=== PATIENT | female | born 1935 | race Caucasian/White ===

== ENCOUNTER 2018-12-24 13:33 | Inpatient (IN) ==
[2018-12-24] MEDS ORDERED: NS 1,000 ML IV ONE (14:16)
--- NOTE | 2018-12-24 14:50 | Diag Imaging Result Doc PS360 ---
EXAM: CT HEAD W/O CONTRAST HISTORY: altered mental status TECHNIQUE: Images were obtained from the skull base to vertex without IV contrast as per standard protocol. COMPARISON: None. FINDINGS: There is diffuse cerebral atrophy. No extra-axial collections. Deep white matter hypodensity is noted most consistent with microvascular disease. Punctate hyperdensity left basal ganglia likely represents calcification. No definite acute hemorrhage. No CT evidence for acute infarct. No midline shift or mass effect. Paranasal sinuses, mastoid air cells, and middle ear cavities are clear. Calvarium is intact. IMPRESSION: Atrophy and microvascular disease. No acute intracranial abnormality. This exam was performed using automated exposure control, adjustment of mA or kV according to patient size, and/or use of iterative reconstruction technique. Electronically signed by Jaimee Brennan 12/24/2018 2:47 PM
[2018-12-24 15:13] LABS: BASO# 0.01 X1000 (0.0-0.2); BASO% 0.3 % (0.0-0.8); EOS# 0.02 X1000 (0.0-0.7); EOS% 0.6 % (0.0-10.0); HEMATOCRIT 35.3 % (37.0-47.0); HEMOGLOBIN 11.3 g/dL (12.0-16.0); LYMPH# 1.43 X1000 (1.2-3.4); LYMPH% 39.5 % (20.5-51.1); MCH 30.1 PG (27-31); MCV 93.9 FL (81-99); MONO# 0.42 X1000 (0.11-0.59); MONO% 11.6 % (1.7-9.3); MPV 10.9 FL (7.4-10.4); NEUT# 1.74 X1000 (1.4-6.5); PLT 183 X1000 (130-400); RBC 3.76 XMIL (4.2-5.4); RDW 13.8 % (11.5-14.5); WBC 3.62 X1000 (4.8-10.8)
[2018-12-24 15:47] LABS: ALBUMIN 4.6 g/dL (3.5-5.0); CALCIUM 9.2 mg/dL (8.8-10.2); CREATININE 0.9 mg/dL (0.5-0.9); POTASSIUM 4.1 mmol/L (3.5-5.1); TOTAL BILIRUBIN 0.5 mg/dL (0.20-1.00); TOTAL PROTEIN 8.3 g/dL (6.3-8.3)
--- NOTE | 2018-12-24 16:23 | Diag Imaging Result Doc PS360 ---
EXAM: CHEST-PORTABLE HISTORY: altered mental status TECHNIQUE: Single view of the chest was performed portably. COMPARISON: None. FINDINGS: The heart size is within normal limits. The pulmonary vasculature is not congested. There is pulmonary vascular congestion and prominent interstitial markings bilaterally. There are small bilateral effusions and more focal opacity in the left lung base. Poor inspiratory result. Deformity proximal right humerus compatible with old fracture. Small calcified granuloma right midlung. IMPRESSION: Decreased inspiration. Bilateral interstitial infiltrates. Small bilateral effusions. Nonspecific airspace disease left lower lobe . Electronically signed by Jaimee Brennan 12/24/2018 4:21 PM
[2018-12-24 16:36] LABS: BILIRUBIN URINE NEGATIVE (NEGATIVE); BLOOD URINE NEGATIVE (NEGATIVE); CLARITY CLEAR (CLEAR); COLOR YELLOW; GLUCOSE URINE NEGATIVE (NEGATIVE); KETONE URINE TRACE mg/dL (NEGATIVE); LEUKOCYTES URINE NEGATIVE (NEGATIVE); NITRITE URINE NEGATIVE (NEGATIVE); PH URINE 6.5; PROTEIN URINE NEGATIVE (NEGATIVE); UROBILINOGEN URINE NORMAL
[2018-12-24 16:41] LABS: URINE BACTERIA NEGATIVE /HFP; URINE EPITHELIAL CELLS <10 /HPF (<10); URINE RBC <10 /HPF (<10); URINE SOURCE CLEAN CATCH; URINE WBC <10 /HPF (<10)
[2018-12-24] MEDS ORDERED: TYLENOL PO PRN (16:58)
[2018-12-24] MEDS ORDERED: ZOFRAN IV PRN (16:58)
[2018-12-24] MEDS ORDERED: NS 1,000 ML IV PRN (16:58)
--- NOTE | 2018-12-24 17:28 | PROVIDER DOCUMENTATION ---
This chart was entered by Aman Corea Scribe, acting as scribe for Destinee Palomo MD. HPI-Neurological Disorder - General Chief Complaint: Altered Mental Status Stated Complaint: CONFUSED Time Seen by Provider: 12/24/18 14:03 Source: patient Allergies/Adverse Reactions: Patient Allergies Allergy/AdvReac Type Severity Reaction Status Date / Time No Known Allergies Allergy Verified 12/24/18 13:47 Home Medications: Home Medication List Medication Instructions Recorded Confirmed Last Taken Type NK [No Home Medications] 12/24/18 12/24/18 Unknown History - History of Present Illness-Neuro Nature of Presenting Problem: Patient is a 83 year old female who presents with confusion. DHR caregiver states patient lives alone and her personal lines insurance agent (niece) has not been taking care of her. DHR caregiver states patient did not have food in her house and does not know the last time the patient had her medications. DHR caregiver states confusion has worsened within the last week. History of dementia. Severity: reports: mild Onset/Duration: reports: 1 week ago Timing: reports: still present, getting worse Context: reports: other (AMS) Character of Altered Mental Status: reports: confused Associated Symptoms: reports: denies symptoms Similar Symptoms Previously?: Yes Recently seen or treated by another doctor?: Yes Review of Systems - Adult - REVIEW OF SYSTEMS - ADULT ROS:: ROS per DHR caregiver Constitutional: reports: no symptoms reported Eyes: reports: no symptoms reported Ears, Nose, Mouth & Throat: reports: no symptoms reported Cardiovascular: reports: no symptoms reported Respiratory: reports: no symptoms reported Gastrointestinal: reports: no symptoms reported Genitourinary: reports: no symptoms reported Musculoskeletal: reports: no symptoms reported Integumentary: reports: no symptoms reported Neurological: reports: see HPI, other (AMS - confusion). denies: dizziness/vertigo, headache/migraines, slurred speech, syncope Psychiatric: reports: no symptoms reported Endocrine: reports: no symptoms reported Hematologic/Lymphatic: reports: no symptoms reported Allergic/Immunologic: reports: no symptoms reported All Other Systems: Reviewed and Negative Past History - Adult - PAST MEDICAL HISTORY-ADULT Review of Records: reports: Old Records Reviewed, Nursing Assessment Review, Medications Reviewed, Social history reviewed & non-contributory. Major Childhood Illnesses: reports: denies history Cardiovascular: reports: denies history Respiratory: reports: denies history Gastrointestinal: reports: denies history Obstetrical/Gynecological: reports: denies history Genitourinary: reports: denies history Musculoskeletal: reports: denies history Neurological: reports: dementia Psychiatric: reports: denies history Endocrine/Immune: reports: denies history Other Conditions: reports: denies history - PRIOR SURGERIES/PROCEDURES Surgical/Procedure History: reports: reviewed, not pertinent - IMMUNIZATION STATUS Childhood Immunizations: See Nurse Assessment Flu Vaccine: See Nurse Assessment - FAMILY HISTORY Family History: reviewed, not pertinent - SOCIAL HISTORY Smoking: denies Substance Use: denies Physical Exam- Neurological - Physical Exam-Neuro Initial Vital Signs Reviewed: Yes General Appearance: alert, no apparent distress. negative: lethargic Eye Exam: bilateral eye: normal inspection HENMT: normocephalic/atraumatic, moist mucous membranes. negative: angioedema Head Injury: no evidence of injury. negative: active bleeding, lacerations, swelling Respiratory: chest non-tender, lungs clear, normal breath sounds. negative: rales, wheezing Cardiovascular: normal peripheral pulses, regular rate, rhythm. negative: tachycardia, systolic murmur Abdominal Exam: normal bowel sounds, non tender, soft. negative: rigid Extremity: non-tender, normal inspection. negative: deformity telemarketer supervisor Exam: normal hearing, normal speech, PERRL. negative: facial droop Integumentary: normal color, normal turgor, warm/dry. negative: diaphoresis, ecchymosis, rash Psych/Mental Status: normal mood/affect, other (oriented to person. disoriented to place and time.). negative: anxious, paranoid Progress - PLAN OF CARE/RESULTS Progress/Plan/Lab Results: Vital Signs - 8 hr 12/24/18 13:44 12/24/18 15:04 12/24/18 16:34 Temperature 98 F 98.2 F Pulse Rate 73 76 86 Respiratory Rate 18 18 20 Blood Pressure 139/73 167/53 143/110 O2 Sat by Pulse Oximetry 97 98 96 Laboratory Results - last 24 hr 12/24/18 12/24/18 12/24/18 14:45 14:45 14:45 WBC 3.62 L RBC 3.76 L Hgb 11.3 L Hct 35.3 L MCV 93.9 MCH 30.1 MCHC 32.0 L RDW Std Deviation 13.8 Plt Count 183 MPV 10.9 H Immature Gran % (Auto) 0.0 Neut % (Auto) 48.0 Lymph % (Auto) 39.5 [place] % (Auto) 11.6 H Eos % (Auto) 0.6 Baso % (Auto) 0.3 Immature Gran # (Auto) 0.00 Neut # (Auto) 1.74 Lymph # (Auto) 1.43 [place] # (Auto) 0.42 Eos # (Auto) 0.02 Baso # (Auto) 0.01 Sodium 137 Potassium 4.1 Chloride 102 Carbon Dioxide 23 L Anion Gap 12 BUN 21 Creatinine 0.9 Estimated GFR/1.73 m2 60 BUN/Creatinine Ratio 23 Glucose 97 Calculated Osmolality 277 Calcium 9.2 Total Bilirubin 0.50 AST 20 ALT 13 Alkaline Phosphatase 76 Total Protein 8.3 Albumin 4.6 Globulin 4.0 Albumin/Globulin Ratio 1.0 TSH 1.28 Urine Source Urine Color Urine Clarity Urine pH Ur Specific [place] Urine Protein Urine Ketones Urine Blood Urine Nitrite Urine Bilirubin Urine Urobilinogen Urine Microscopic RBC Urine WBC Urine Microscopic WBC Ur Epithelial Cells Urine Bacteria Urine Glucose 12/24/18 15:49 WBC RBC Hgb Hct MCV MCH MCHC RDW Std Deviation Plt Count MPV Immature Gran % (Auto) Neut % (Auto) Lymph % (Auto) [place] % (Auto) Eos % (Auto) Baso % (Auto) Immature Gran # (Auto) Neut # (Auto) Lymph # (Auto) [place] # (Auto) Eos # (Auto) Baso # (Auto) Sodium Potassium Chloride Carbon Dioxide Anion Gap BUN Creatinine Estimated GFR/1.73 m2 BUN/Creatinine Ratio Glucose Calculated Osmolality Calcium Total Bilirubin AST ALT Alkaline Phosphatase Total Protein Albumin Globulin Albumin/Globulin Ratio TSH Urine Source CLEAN CATCH Urine Color YELLOW Urine Clarity CLEAR Urine pH 6.5 Ur Specific [place] 1.010 Urine Protein NEGATIVE Urine Ketones TRACE Urine Blood NEGATIVE Urine Nitrite NEGATIVE Urine Bilirubin NEGATIVE Urine Urobilinogen NORMAL Urine Microscopic RBC <10 Urine WBC NEGATIVE Urine Microscopic WBC <10 Ur Epithelial Cells <10 Urine Bacteria NEGATIVE Urine Glucose NEGATIVE Orders Category Date Time Status Admit - [facility] Routine AdmDCTranf 12/24/18 16:58 Active Activity - Up with Assistance ORDERED Care 12/24/18 17:40 Active Apply Mechanical Device [QM] ORDERED Care 12/24/18 17:40 Active Intake and Output-Strict ORDERED Care 12/24/18 17:40 Active Saline Loc NOW Care 12/24/18 14:14 Active Update & Confirm Home Medicati ROUTINE Care 12/24/18 16:58 Active Vital Signs Order Q 8-HR ASSESS Care 12/24/18 17:40 Active Z-Document. for Tele Applied ORDERED Care 12/24/18 17:40 Active Social Service Consult Routine Cons 12/24/18 17:40 Active Regular Diet Diet 12/24/18 16:58 Active CHEST-PORTABLE [RAD] Stat Exams 12/24/18 15:[address] HEAD W/O CONTRAST [CT] Stat Exams 12/24/18 14:14 Completed CBC WITH DIFF [HEME] Routine Lab 12/25/18 06:00 Ordered CBC WITH DIFF [HEME] Stat Lab 12/24/18 14:45 Completed COMPREHENSIVE METABOLIC PANEL [CHEM] Routine Lab 12/25/18 06:00 Ordered COMPREHENSIVE METABOLIC PANEL [CHEM] Stat Lab 12/24/18 14:45 Completed MAGNESIUM [CHEM] Routine Lab 12/25/18 06:00 Ordered TSH Stat Lab 12/24/18 14:[address] W/POSS RFLX CULT [URINALYSIS] Stat Lab 12/24/18 15:49 Completed 0.9% Sodium Chloride Inj [Ns] 1,000 ml Med 12/24/18 16:58 Active IV 75 mls/hr 0.9% Sodium Chloride Inj [Ns] 1,000 ml Med 12/24/18 14:16 Discontinued IV 999 mls/hr Acetaminophen [Tylenol] Med 12/24/18 16:58 Active 650 mg PO PRN PRN Ondansetron [Zofran] Med 12/24/18 16:58 Active 4 mg IV Q4H PRN PRN Telemetry [OM.EQ] Routine Oth 12/24/18 17:40 Active Transfer/Admit Order [TRANSFER] Routine Transfer 12/24/18 16:55 Completed Result Diagrams: 12/24/18 14:45 12/24/18 14:45 - EKG 1 Time of EKG reading by physician:: 13:56 EKG Read and Signed by:: Destinee Palomo EKG Interpretation (*Must complete 3 of following elements*): Abnormal Rate: 75 Rhythm: sinus rhythm with marked sinus arrhythmia [place]: normal [place] Interval: normal Comments: otherwise normal ECG - XRAY 1 XRAY Study: Chest Impression: See EMR Report (EXAM: CHEST-PORTABLE HISTORY: altered mental status TECHNIQUE: Single view of the chest was performed portably. COMPARISON: None. FINDINGS: The heart size is within normal limits. The pulmonary vasculature is not congested. There is pulmonary vascular congestion and prominent interstitial markings bilaterally. There are small bilateral effusions and more focal opacity in the left lung base. Poor inspiratory result. Deformity proximal right humerus compatible with old fracture. Small calcified granuloma right midlung. IMPRESSION: Decreased inspiration. Bilateral interstitial infiltrates. Small bilateral effusions. Nonspecific airspace disease left lower lobe . Electronically signed by Jaimee Brennan 12/24/2018 4:21 PM 12/24/18 1621 Interpreting Physician: Jaimee Brennan MD Dictated Date/Time: 12/24/18 1617 cc: Destinee Palomo MD; None,PCP) - CT/MRI 1 CT Study: Head Impression: See EMR Report (Signed EXAM: CT HEAD W/O CONTRAST HISTORY: altered mental status TECHNIQUE: Images were obtained from the skull base to vertex without IV contrast as per standard protocol. COMPARISON: None. FINDINGS: There is diffuse cerebral atrophy. No extra-axial collections. Deep white matter hypodensity is noted most consistent with microvascular disease. Punctate hyperdensity left basal ganglia likely represents calcification. No definite acute hemorrhage. No CT evidence for acute infarct. No midline shift or mass effect. Paranasal sinuses, mastoid air cells, and middle ear cavities are clear. Calvarium is intact. IMPRESSION: Atrophy and microvascular disease. No acute intracranial abnormality. This exam was performed using automated exposure control, adjustment of mA or kV according to patient size, and/or use of iterative reconstruction technique. Electronically signed by Jaimee Brennan 12/24/2018 2:47 PM 12/24/18 1447 Interpreting Physician: Jaimee Brennan MD Dictated Date/Time: 12/24/18 1441 cc: Destinee Palomo MD; None,PCP) - CONSULTS/PCP/HOSPITALIST Notification #1 *Consult/PCP/Hospitalist*: Dr. Duarte Time Discussed: 16:47 Reason/Comments: Dr. Palomo consulted with Dr. Duarte about patient. Consult Disposition: Will see in ED Departure - Departure Date of Disposition Decision: 12/24/18 Time of Disposition Decision: 18:00 DIAGNOSIS: Dementia, Altered mental status Disposition: ADMITTED INPATIENT 09 Certified Medical Emergency: Emergent Condition: Good - Critical Care Note This patient required my direct & personal management of CC.: No Attestation - Physician/ SAEED Attestation Patient care was provided by Advanced Practice Provider:: No The physician spent face to face time with patient:: Yes Advanced Practice Provider documentation review:: Supervising physician onsite and consulted in the evaluation and care of this patient. The physician did have a face to face encounter with the patient. This chart was documented by the indicated scribe, (Amna Corea Scribe) and accurately reflects the services I performed and decisions made by , Destinee Palomo MD, as attested by the provider's signature.
[2018-12-24] MEDS ORDERED: STERILE WATER INJ. INJ PRN (18:44)
[2018-12-24] MEDS ORDERED: GEODON IM PRN (18:44)
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
[2018-12-25] MEDS ORDERED: TYLENOL PO PRN (06:30)
[2018-12-25 06:49] LABS: EOS# 0.03 X1000 (0.0-0.7); EOS% 0.9 % (0.0-10.0); HEMATOCRIT 32.7 % (37.0-47.0); HEMOGLOBIN 10.4 g/dL (12.0-16.0); IMM GRAN# 0.01 X1000 (0.0-0.04); IMM GRAN% 0.3 % (0.0-0.5); LYMPH# 1.26 X1000 (1.2-3.4); LYMPH% 37.6 % (20.5-51.1); MCH 29.8 PG (27-31); MCHC 31.8 g/dL (33-37); MCV 93.7 FL (81-99); MONO# 0.43 X1000 (0.11-0.59); MONO% 12.8 % (1.7-9.3); MPV 11.6 FL (7.4-10.4); NEUT# 1.62 X1000 (1.4-6.5); NEUT% 48.4 % (42.2-75.2); PLT 150 X1000 (130-400); RBC 3.49 XMIL (4.2-5.4); RDW 13.7 % (11.5-14.5); WBC 3.35 X1000 (4.8-10.8)
[2018-12-25 08:03] LABS: ALBUMIN 4.4 g/dL (3.5-5.0); CREATININE 0.9 mg/dL (0.5-0.9); TOTAL BILIRUBIN 0.5 mg/dL (0.20-1.00); TOTAL PROTEIN 7.9 g/dL (6.3-8.3)
[2018-12-25] MEDS ORDERED: GEODON IM ONE (09:42)
[2018-12-25] MEDS ORDERED: STERILE WATER INJ. INJ ONE (09:42)
[2018-12-25] MEDS: LEXAPRO PO SCH (11:05)
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
--- NOTE | 2018-12-25 14:46 | EKG Report ---
Test Performed on : 12/24/2018 1:56:03 PM Test Reason : ER Blood Pressure : / mmHG Vent. Rate : 075 BPM Atrial Rate : 075 BPM P-R Int : 132 ms QRS Dur : 080 ms QT Int : 394 ms P-R-T Axes : -01 014 040 degrees QTc Int : 439 ms Sinus rhythm. with marked sinus arrhythmia. Otherwise normal ECG No previous ECGs available Unconfirmed Result
[2018-12-25] MEDS ORDERED: AMBIEN PO SCH (21:00)
[2018-12-26] MEDS: LEXAPRO PO SCH (09:25)
[2018-12-26] MEDS ORDERED: HALDOL IV ONE (09:49)
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
[2018-12-26 14:25] VITALS: BP 143/69
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
== END 2018-12-26 17:55 | DRG 884 ==
LOC: P.ED 13:33 → P.MEDSURG 17:25 → SUATTDRO 17:25 → P.MEDSURG 17:37
PROVIDERS: ATTEND Internal Medicine
CPT/HCPCS: 70450; 71010; 71045; 80053; 81001; 83735; 84443; 85025; 93005; 96360; 99285; A9270; J1630; J3486; J7030